=== PATIENT | female | born 1945 | race Caucasian/White ===

== ENCOUNTER → 2020-10-25 | Outpatient (CLI) | payer MEDICARE, BC ==
[2014-02-11 09:08] VITALS: BP 94/63
[2020-10-25 14:06] LABS: CALCIUM 9.7 mg/dL (8.5-10.1); CREATININE 1.3 mg/dL (0.6-1.0); GFR 39.8; POTASSIUM 3.9 mmol/L (3.5-5.1)
== END ==
LOC: LAB 12:35
PROVIDERS: ATTEND Nurse Practitioner
DX: I50.32 Chronic diastolic (congestive) heart failure (principal)
CPT/HCPCS: 36415; 80048; 83880

== ENCOUNTER → 2020-11-10 | Outpatient (CLI) | payer MEDICARE, BC ==
[2014-02-11 09:08] VITALS: BP 94/63
[2020-11-10 10:28] LABS: CALCIUM 9.7 mg/dL (8.5-10.1); CREATININE 1.6 mg/dL (0.6-1.0); GFR 31.3; POTASSIUM 4.3 mmol/L (3.5-5.1)
== END ==
LOC: LAB 08:45
PROVIDERS: ATTEND Nurse Practitioner
DX: I11.0 Hypertensive heart disease with heart failure (principal); I50.32 Chronic diastolic (congestive) heart failure
CPT/HCPCS: 36415; 80048; 83880

== ENCOUNTER 2020-11-25 19:53 | Emergency (ER) | payer MEDICARE, BC ==
[~2020-11-25] VITALS: Ht 162.6 cm; Wt 69.6 kg
[2020-11-25 20:09] VITALS: BP 134/70
[2020-11-25] MEDS ORDERED: FAMOTIDINE 20 MG TABLET PO ONE (20:15)
[2020-11-25] MEDS ORDERED: predniSONE 20 MG TABLET PO ONE (20:15)
[2020-11-25] MEDS ORDERED: diphenhydrAMINE HCL 25 MG CAPSULE PO ONE (20:15)
--- NOTE | 2020-11-25 20:22 | PHYS DOC ---
Past History Past Surgical History: Hip Replacement, Other Additional Past Surgical Histo: ILLEOSTOMY, CATARACT Adult General Chief Complaint Chief Complaint: INSECT BITE HPI HPI Patient is a 75-year-old female patient presenting to the ED today with an insect bite to the right axilla that she noted last night. Patient denies any difficulty breathing, throat or tongue swelling. States the area is itchy Review of Systems Review of Systems Constitutional: Denies fever or chills [] Musculoskeletal: Denies back pain or joint pain [] Integument: Reports bug bite to the right arm. Neurologic: Denies headache, focal weakness or sensory changes [] All other systems were reviewed and found to be within normal limits, except as documented in this note. Current Medications Current Medications Current Medications Medications (Trade) Dose Ordered Sig/Graham Start Time Stop Time Status Last Admin Dose Admin Diphenhydramine HCl (Benadryl) 25 mg 1X ONCE 11/25/20 20:15 11/25/20 20:16 UNV Famotidine (Pepcid) 20 mg 1X ONCE 11/25/20 20:15 11/25/20 20:16 UNV Prednisone (Prednisone) 60 mg 1X ONCE 11/25/20 20:15 11/25/20 20:16 UNV Allergies Allergies Allergies Coded Allergies Type Severity Reaction Last Updated Verified No Known Drug Allergies 09/19/13 No Physical Exam Physical Exam Constitutional: Well developed, well nourished, no acute distress, non-toxic appearance. [] Skin: Right axilla with an area of induration roughly 3 x 3 cm, the center. Bite jordi in blister form is noted at the center of this indurated area. There is no cellulitis but there is slight erythema consistent with an insect bite. The area does not appear infected. The area is not warm. Back: No tenderness, no CVA tenderness. [] Extremities: No tenderness, no cyanosis, no clubbing, ROM intact, no edema. [] Neurologic: Alert and oriented X 3, normal motor function, normal sensory func tion, no focal deficits noted. [] Psychologic: Affect normal, judgement normal, mood normal. [] Current Patient Data Vital Signs Vital Signs Date Time Temp Pulse Resp B/P (MAP) Pulse Ox O2 Delivery O2 Flow Rate FiO2 11/25/20 20:09 97.7 95 18 134/70 97 Room Air EKG EKG [] Radiology/Procedures Radiology/Procedures [] Heart Score C/O Chest Pain: N/A Risk Factors: Risk Factors: DM, Current or recent (<one month) smoker, HTN, HLP, family history of CAD, obesity. Risk Scores: Risk Factors: DM, Current or recent (<one month) smoker, HTN, HLP, family histo ry of CAD, obesity. Course & Med Decision Making Course & Med Decision Making Pertinent Labs and Imaging studies reviewed. (See chart for details) This is a 75-year-old female patient presented to the ED today with an insect bite to the right axilla. Area does not appear infected. Tetanus updated. D/c to home f/u with PCP as needed Dragon Disclaimer Dragon Disclaimer This electronic medical record was generated, in whole or in part, using a voice recognition dictation system. Departure Departure: Impression: Primary Impression: Insect bite Disposition: HOME / SELF CARE / HOMELESS Condition: STABLE Referrals: NARDA LANDA MD (PCP) Follow-up in 1 week Patient Instructions: Insect Bite, [id number] Additional Instructions: You have an insect bite to the right axilla. Please take the prescribed medication as ordered. Please take Benadryl as needed for the insect bite. Please follow-up with your own doctor in 1 to 2 weeks. Scripts Diphenhydramine Hcl (BENADRYL) 25 Mg Capsule 1 CAP PO Q6HRS, #30 CAP 0 Refills Prov: KAYY MARIE ABIMBOLA 11/25/20 Sulfamethoxazole/Trimethoprim (BACTRIM DS TABLET) 1 Each Tablet 1 TAB PO BID for 10 Days, #20 TAB 0 Refills Prov: KAYY MARIE ABIMBOLA 11/25/20 Famotidine (Acid-Pep) 20 Mg Tablet 20 MG PO DAILY, #7 TAB Prov: SHARRIEDGARDGrantKAYY Edie DAILY 11/25/20 Prednisone (PREDNISONE) 50 Mg Tablet 1 TAB PO DAILY, #5 TAB Prov: SHARRIEDGARDGrantKAYY Irizarry ABIMBOLA 11/25/20 Triamcinolone Acetonide (TRIAMCINOLONE ACETONIDE 0.1% CREAM) 15 Gm Cream..g. 1 VEDA TP TID, #1 EACH Prov: KAYY MARIE ABIMBOLA 11/25/20 Problem Qualifiers Primary Impression: Insect bite Encounter type: initial encounter Site of insect bite: upper arm Laterality: right Qualified Codes: S40.861A - Insect bite (nonvenomous) of right upper arm, initial encounter; W57.XXXA - Bitten or stung by nonve nomous insect and other nonvenomous arthropods, initial encounter KAYY MARIE APRN Nov 25, 2020 20:22
[2020-11-25] MEDS ORDERED: DIPH25CA58 PO (20:28)
[2020-11-25] MEDS ORDERED: SULF1TAB24 PO (20:28)
[2020-11-25] MEDS ORDERED: TRIA15CR3 TP (20:28)
[2020-11-25] MEDS ORDERED: PRED50TA PO (20:28)
[2020-11-25] MEDS ORDERED: FAMO-141 PO (20:28)
[2020-11-25] MEDS ORDERED: DIPH,PERTUSS(ACELL),TET VAC/PF 0.5 ML SYRINGE. VAX IM ONE (20:45)
== END 2020-11-25 20:43 | disposition home or self-care (01) ==
LOC: ER 19:53
DX: S40.861A Insect bite (nonvenomous) of right upper arm, initial encounter (principal); W57.XXXA Bitten or stung by nonvenomous insect and other nonvenomous arthropods, initial encounter; Y93.89 Activity, other specified; Y92.89 Other specified places as the place of occurrence of the external cause; Y99.8 Other external cause status
CPT/HCPCS: 90471; 90715; 99284; J7512; Q0163